=== PATIENT | male | born 1935 | race Asian ===

== ENCOUNTER 2020-12-30 15:12 | Inpatient (IN) ==
[2020-12-30 15:24] LABS: ABS Eosinophils 0.5 10^3/ul (0-0.6); ABS Monocytes 0.6 10^3/ul (0-0.8); ABS Neutrophils 4.8 10^3/ul (1.5-7.7); Eosinophil % 5.2 %; Hematocrit 38 % (42-52); Hemoglobin 12.7 g/dL (14.0-18.0); Lymphocyte % 33.7 %; Mean Corpuscular HGB Conc 34 g/dL (31-36); Mean Corpuscular Hemoglobin 32 pg (27-31); Mean Corpuscular Volume 95 fL (80-94); Mean Platelet Volume 8.6 fL (7.4-10.4); Platelet Count 208 10^3/uL (150-450); Red Blood Count 3.94 10^6 /uL (4.18-5.48); Red Cell Distribution Width 14 % (10-15)
[2020-12-30] MEDS ORDERED: Heparin 2 UNITS/ML 1000 mls 2,000 ML IV ONE (15:27)
[2020-12-30] MEDS ORDERED: Amiodarone 150 mg IVPREMIX 150 MG/100 ML BAG IV ONE (15:27)
[2020-12-30] MEDS ORDERED: Iohexol 350 (CONTRAST) 200 ML MDV IV ONE ×2 (15:28→15:32)
[2020-12-30] MEDS ORDERED: Lidocaine 1% VIAL 10 MG/ML VIAL ONE ×2 (15:28)
[2020-12-30 15:32] LABS: Activated Partial Thrombo Time 29.4 seconds (26.0-38.0); INR 0.94 (0.82-1.09)
[2020-12-30] MEDS ORDERED: VERAPAMIL 2.5 MG/ML 2 ML VIAL ** 5 mg/2 ml ONE (15:37)
[2020-12-30] MEDS ORDERED: nitroGLYCERIN DRIP 25,000 MCG/250 ML BTL ONE (15:39)
[2020-12-30 15:42] LABS: ALT 14 U/L (7-52); Albumin/Globulin Ratio 1.3 (1-3); Alkaline Phosphatase 52 U/L (34-104); Blood Urea Nitrogen 37 mg/dL (6-24); CO2 Carbon Dioxide 26 mmol/L (22-32); Calcium 8.9 mg/dL (8.6-10.3); Chloride 102 mmol/L (101-111); Creatine Kinase 127 U/L (10-223); EGFR African American 52.1 (>60); Glucose 159 mg/dL (70-100); LDL Cholesterol Direct 71 mg/dL; Sodium 136 mmol/L (135-145)
[2020-12-30 15:45] LABS: AST 19 U/L (13-39); Anion Gap 8 mmol/L (2-11); Potassium 4.2 mmol/L (3.5-5.0)
[2020-12-30 15:46] LABS: CKMB ng/mL 3.8 ng/mL (0.6-6.3)
[2020-12-30 15:47] LABS: Troponin I 0.06 ng/mL (<0.03)
[2020-12-30] MEDS ORDERED: Bivalirudin 250 MG VIAL ONE (16:03)
[2020-12-30] MEDS ORDERED: NS 0.9% 1000 ml BAG 1,000 ML IV SCH (18:15)
[2020-12-30] MEDS ORDERED: Amiodarone 360 MG IVPREMIX 360 MG/200 ML BAG IV ONE (18:17)
[2020-12-30] MEDS ORDERED: Furosemide 20 mg/2 ml IV VIAL IV SLOW PU ONE (18:28)
[2020-12-30 19:12] LABS: Magnesium 2.2 mg/dL (1.9-2.7)
[2020-12-30 21:54] LABS: Troponin I > 79.00 ng/mL (<0.03)
[2020-12-30] MEDS ORDERED: Amiodarone 360 MG IVPREMIX 360 MG/200 ML BAG IV SCH (22:00)
[2020-12-31 01:07] LABS: Troponin I > 79.00 ng/mL (<0.03)
[2020-12-31 05:55] LABS: ABS Lymphocytes 0.5 10^3/ul (1.0-4.8); ABS Monocytes 0.3 10^3/ul (0-0.8); ABS Neutrophils 12.1 10^3/ul (1.5-7.7); Hematocrit 38 % (42-52); Hemoglobin 12.5 g/dL (14.0-18.0); Mean Corpuscular HGB Conc 33 g/dL (31-36); Mean Corpuscular Hemoglobin 32 pg (27-31); Mean Corpuscular Volume 96 fL (80-94); Mean Platelet Volume 8.9 fL (7.4-10.4); Platelet Count 215 10^3/uL (150-450); Red Blood Count 3.98 10^6 /uL (4.18-5.48); Red Cell Distribution Width 14 % (10-15); White Blood Count 12.9 10^3/uL (3.5-10.8)
[2020-12-31 06:12] LABS: Phosphorus 5.4 mg/dL (2.5-5.0)
[2020-12-31 06:21] LABS: Blood Urea Nitrogen 47 mg/dL (6-24); CO2 Carbon Dioxide 20 mmol/L (22-32); Calcium 8.1 mg/dL (8.6-10.3); Chloride 102 mmol/L (101-111); Cholesterol 134 mg/dL; EGFR African American 41.2 (>60); Glucose 237 mg/dL (70-100); HDL Cholesterol 53.3 mg/dL; LDL Cholesterol 63 mg/dL; Sodium 135 mmol/L (135-145); Triglycerides 90 mg/dL
[2020-12-31 06:25] LABS: Anion Gap 13 mmol/L (2-11); Potassium 5.3 mmol/L (3.5-5.0)
[2020-12-31 06:29] LABS: Troponin I > 79.00 ng/mL (<0.03)
[2020-12-31] MEDS ORDERED: Dextrose 50% Syringe 50 ml 25 GM/50 ML SYRINGE IV PUSH ONE (08:25)
[2020-12-31] MEDS: Albuterol/Ipratropium NEB.SOL (2.5/0.5 MG) 3 ML NEB.SOLN INH PRN (09:07)
[2020-12-31] MEDS ORDERED: NORMOSOL-R pH 7.4 1000 mL BAG 1,000 ML IV SCH (10:00)
[2020-12-31] MEDS ORDERED: DOBUTamine 2000 MCG/ML IVPREMX 500 MG/250 ML BAG IV SCH ×2 (14:00→14:12)
[2020-12-31 15:13] LABS: Blood Urea Nitrogen 53 mg/dL (6-24); CO2 Carbon Dioxide 20 mmol/L (22-32); Calcium 8.2 mg/dL (8.6-10.3); Chloride 99 mmol/L (101-111); EGFR African American 34.4 (>60); EGFR Non-African American 28.4 (>60); Glucose 242 mg/dL (70-100); Sodium 132 mmol/L (135-145)
[2020-12-31 15:22] LABS: Anion Gap 13 mmol/L (2-11)
[2020-12-31 15:56] LABS: TSH Ultra Thyroid Stim Horm 1.87 mcIU/mL (0.34-5.60)
[2020-12-31] MEDS ORDERED: Amiodarone 360 MG IVPREMIX 360 MG/200 ML BAG IV ONE (16:02)
[2020-12-31] MEDS: Amiodarone 360 MG IVPREMIX 360 MG/200 ML BAG IV SCH (16:11)
[2020-12-31] MEDS ORDERED: Milrinone 20,000 MCG/100 ML BAG IV SCH (17:00)
[2020-12-31 20:08] LABS: Calcium 8.2 mg/dL (8.6-10.3); EGFR African American 33.7 (>60); EGFR Non-African American 27.8 (>60); Potassium 4.7 mmol/L (3.5-5.0)
[2021-01-01] MEDS: Amiodarone 360 MG IVPREMIX 360 MG/200 ML BAG IV SCH ×2 (02:56→03:01)
[2021-01-01 05:01] LABS: Hematocrit 32 % (42-52); Hemoglobin 10.7 g/dL (14.0-18.0); Mean Corpuscular HGB Conc 33 g/dL (31-36); Mean Corpuscular Hemoglobin 31 pg (27-31); Mean Corpuscular Volume 94 fL (80-94); Mean Platelet Volume 8.9 fL (7.4-10.4); Platelet Count 177 10^3/uL (150-450); Red Blood Count 3.43 10^6 /uL (4.18-5.48); Red Cell Distribution Width 14 % (10-15); White Blood Count 19.1 10^3/uL (3.5-10.8)
[2021-01-01 05:29] LABS: Calcium 8.5 mg/dL (8.6-10.3); EGFR African American 33.2 (>60); EGFR Non-African American 27.4 (>60); Magnesium 2.3 mg/dL (1.9-2.7); Phosphorus 4.2 mg/dL (2.5-5.0); Potassium 4.2 mmol/L (3.5-5.0)
[2021-01-01] MEDS: Albuterol/Ipratropium NEB.SOL (2.5/0.5 MG) 3 ML NEB.SOLN INH PRN (07:13)
[2021-01-01] MEDS ORDERED: Metoprolol Tartrate 5 mg VIAL 5 ml VIAL (1 mg/ml) IV ONE (08:20)
[2021-01-01 10:46] LABS: Urine Appearance Clear; Urine Bilirubin Negative (Negative); Urine Blood Negative (Negative); Urine Color Yellow; Urine Glucose Negative (Negative); Urine Ketones Negative (Negative); Urine Nitrite Negative (Negative); Urine Protein 2+(100 mg/dL) (Negative); Urine Specific Gravity 1.028 (1.002-1.030); Urine Urobilinogen Negative (Negative)
[2021-01-01 10:54] LABS: Urine Bacteria Absent (Absent); Urine Red Blood Cell Trace(0-2/hpf) (Absent); Urine Squamous Epithelial Cell Present (Absent); Urine White Blood Cell Trace(0-5/hpf) (Absent)
[2021-01-01] MEDS ORDERED: Amiodarone 400 mg TAB PO SCH (14:00)
[2021-01-01 15:36] VITALS: BP 115/87
== END 2021-01-01 17:00 | disposition short-term general hospital (02) ==
LOC: ED 15:12 → ICU 18:08
PROVIDERS: ADMIT Internal Medicine Cardiovascular Disease; ATTEND Internal Medicine Cardiovascular Disease